=== PATIENT | female | born 1985 | race Caucasian/White ===

== ENCOUNTER 2018-04-03 22:31 | Emergency (ER) | payer OTHER ==
[~2018-04-03] VITALS: Ht 160 cm; Wt 77.1 kg
[2018-04-03 22:45] VITALS: Ht 160 cm; Wt 77.1 kg
[2018-04-03 23:34] LABS: BASOPHIL % 1.7 % (0-2); PLATELET COUNT 340 x10^3mcL (130-400); RED CELL DISTRIBUTION WIDTH 12.6 % (11.5-14.5)
[2018-04-04 01:41] VITALS: BP 126/71
== END 2018-04-04 01:41 | disposition home or self-care (01) ==
LOC: ED 22:31
PROVIDERS: Emergency Medicine
DX: S16.1XXA Strain of muscle, fascia and tendon at neck level, initial encounter (principal); X58.XXXA Exposure to other specified factors, initial encounter; Y93.89 Activity, other specified; Y92.89 Other specified places as the place of occurrence of the external cause; Y99.8 Other external cause status
CPT/HCPCS: J2270; J2405

== ENCOUNTER 2018-04-05 14:02 | Emergency (ER) | payer OTHER ==
[~2018-04-05] VITALS: Ht 160 cm; Wt 81.2 kg
[2018-04-05 14:12] VITALS: BP 130/79
== END 2018-04-05 15:55 | disposition home or self-care (01) ==
LOC: ED 14:02
DX: M62.838 Other muscle spasm (principal); M50.322 Other cervical disc degeneration at C5-C6 level
CPT/HCPCS: 20552

== ENCOUNTER 2020-04-10 12:59 | Emergency (ER) | payer SELFPAY ==
[~2020-04-10] VITALS: Ht 160 cm; Wt 75.3 kg
[2020-04-10 13:07] VITALS: BP 97/57; Ht 160 cm; Wt 75.3 kg
== END 2020-04-10 15:19 | disposition left against medical advice (07) ==
LOC: ED 12:59
DX: Z53.21 Procedure and treatment not carried out due to patient leaving prior to being seen by health care provider (principal)